=== PATIENT | female | born 1980 | race Caucasian/White ===

== ENCOUNTER → 2017-03-19 | Outpatient (CLI) | payer BC ==
[~2017-03-19] VITALS: Ht 162.6 cm; Wt 91.0 kg
[~2017-03-19] MED LIST: PRENATAL MULTI1 EAC2 PO
[2017-03-19 09:39] VITALS: BP 139/78
== END | disposition home or self-care (01) ==
LOC: IVINF 09:21
DX: Z34.82 Encounter for supervision of other normal pregnancy, second trimester (principal); Z3A.28 28 weeks gestation of pregnancy; Z67.41 Type O blood, Rh negative
CPT/HCPCS: 96372; J2790

== ENCOUNTER 2017-06-04 06:15 | Inpatient (IN) | payer BC ==
[~2017-06-04] VITALS: Ht 157.5 cm; Wt 95.7 kg
[2017-06-04] VITALS (20 sets, daily range): BP systolic 96–146; BP diastolic 54–83
[2017-06-04 07:38] LABS: BASOPHIL (%) 0.2 % (0-1); EOSINOPHIL (%) 0.8 % (0-5); EOSINOPHIL COUNT 0.1 K/uL (0-0.3); HEMATOCRIT 32.5 % (36.0-46.0); HEMOGLOBIN 10.7 G/DL (11.9-15.5); IMMATURE GRANULOCYTE (%) 1.7 % (0.0-0.7); LYMPHOCYTE (%) 10.1 % (15-42); LYMPHOCYTE COUNT 1.3 K/uL (1.0-2.8); MCH 28.8 PG (29.0-34.0); MCHC 32.9 G/DL (30.0-36.0); MCV 87.4 FL (83-99); MONOCYTE COUNT 0.8 K/uL (0-0.8); NEUTROPHIL (%) 81.2 % (45-76); NEUTROPHIL COUNT 10.8 K/uL (1.8-6.4); PLATELET COUNT 204 K/uL (156-360); RBC DIS.WIDTH-CV 13.3 % (11.8-14.6); RED BLOOD COUNT 3.72 M/uL (3.80-5.20); WHITE BLOOD COUNT 13.3 K/uL (4.1-10.2)
[2017-06-04] MEDS ORDERED: MOTRIN800 MG PO (11:08)
[2017-06-05 07:35] VITALS: BP 103/59
== END 2017-06-05 13:50 | disposition home or self-care (01) | DRG 775 ==
LOC: LDRP-OP 06:15 → 2WEST 06:16 → LDRP-OP 07-07 12:49
PROVIDERS: Advanced Practice Midwife
DX: O99.214 Obesity complicating childbirth (principal); Z37.0 Single live birth; E66.9 Obesity, unspecified; Z3A.39 39 weeks gestation of pregnancy; Z68.38 Body mass index [BMI] 38.0-38.9, adult; O22.43 Hemorrhoids in pregnancy, third trimester; O12.04 Gestational edema, complicating childbirth; O69.81X1 Labor and delivery complicated by cord around neck, without compression, fetus 1
CPT/HCPCS: 83030; 85025; 86850; 86900; 86901; C1755; J2790; J3010; J7120

== ENCOUNTER → 2017-08-01 | Outpatient (CLI) | payer BC ==
[~2017-08-01] MED LIST changes: +MOTRIN800 MG PO
== END | disposition home or self-care (01) ==
LOC: LAC 13:03
DX: Z39.1 Encounter for care and examination of lactating mother (principal); O92.03 Retracted nipple associated with lactation; O92.4 Hypogalactia; O92.79 Other disorders of lactation
CPT/HCPCS: G0463